=== PATIENT | male | born 1950 | race Caucasian/White ===

== ENCOUNTER 2025-05-26 06:59 | Day surgery (SDC) | payer OTHER, SELFPAY ==
[2025-05-22 13:08] VITALS: BMI 21.7
[2025-05-22 13:32] LABS: Hematocrit 41.3 % (39.0-52.0); Hemoglobin 13.7 g/dL (13.0-18.0); Mean Corp Hgb Conc. 33.2 g/dL (33.0-37.0); Mean Corpuscular Volume 92.8 fL (80.0-94.0); Nucleated Red Blood Cells % 0 % (-); Platelet Count 198 10^3/uL (130-400); Red Cell Dist. Width 13.2 % (11.5-14.5)
[2025-05-22 13:56] LABS: ALT (SGPT) 49 U/L (0-50); AST (SGOT) 39 U/L (17-59); Albumin 4.5 g/dl (3.5-5.0); Alkaline Phosphatase 80 U/L (38-126); Blood Urea Nitrogen 29 mg/dl (9-20); Calcium 9.5 mg/dl (8.4-10.2); Carbon Dioxide 29 mmol/L (22-30); Chloride 103 mmol/L (98-107); Estimated Creatinine Clearance 45 ml/min; Glucose 73 mg/dl (70-99); Potassium 4.2 mmol/L (3.5-5.1); Sodium 139 mmol/L (135-145); Total Protein 7.1 g/dl (6.3-8.2); eGFR 57.29
[2025-05-26] VITALS (10 sets, daily range): BP systolic 96–151; BP diastolic 64–93; BMI 22.2
[2025-05-26] MEDS: NSS 199 ML IV (08:18)
--- NOTE | 2025-05-26 10:17 | ITS.CL.CATH ---
Electronic Scale Tester - Catheterization
Cardiac Catheterization
Procedure Report:
CARDIAC CATHETERIZATION REPORT
Date of Procedure: 05/26/2025
Referring: Garcia Andersen D.O.
INDICATION: Chest pain, abnormal stress test.
PROCEDURE:
1. Left heart catheterization.
2. Coronary angiography.
A total of 37 minutes of procedural/moderate sedation was utilized. An independent medical assistant float was present to assist with and help manage the patient's level of consciousness and physiologic status.
ACCESS:
1. 6 [place] right radial artery using a modified Seldinger technique.
CATHETERS:
1. 5 [place] JR4.
2. 5 [place] JL 3.5.
HEMODYNAMIC DATA
Weight (kg): 66.2
AO (s/d/x, mmHg): 112/73/85
LV (s/x mmHg): 114/10
LEFT VENTRICULOGRAPHY: Not performed.
CORONARY ANGIOGRAPHY
Dominance: Right.
Left Main: Normal size, bifurcating vessel. There is no coronary artery disease.
LAD: Normal size vessel giving rise to 2 significant diagonals. There are minor luminal irregularities. The distal LAD is severely tortuous. There is delayed flow throughout the body of the vessel and spite of absence of epicardial stenosis.
Ramus: Congenitally absent.
Circumflex: Normal size, nondominant vessel giving rise to 2 obtuse marginals. The first obtuse marginal arises very high on the circumflex and supplies the majority of the inferolateral wall. OM1 is a medium size vessel supplying the basal
inferolateral wall. There is no coronary artery disease.
RCA: Large size, dominant vessel with a notable posterolateral arcade. 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
INTERVENTION(S)
None.
Closure Device: Vascular band.
Radiation (mGy): 369
DAP (cm2.Gy): 18.6
Fluoroscopy time (minutes): 2.1
CONCLUSIONS
1. Right dominant circulation with luminal regularities in the LAD and modest disease in the ostium of the RCA. Of note, there is delayed flow throughout the body of the LAD in the absence of epicardial stenosis.
2. Normal filling pressures (LVEDP = 10 mmHg at 66.2 kg).
RECOMMENDATIONS:
1. Expectant management after cardiac catheterization via right radial approach.
2. Limited weight bearing on the right wrist for one week.
3. Continue OMT/GDMT as hemodynamics will tolerate.
4. Consider up titration of statin given documentation of some atherosclerosis within the coronary vessels.
5. Given delayed flow in the LAD in the absence of epicardial disease, the patient may be suffering from endothelial dysfunction which may be managed medically with uptitration of amlodipine versus addition of long-acting nitrates and/or CHETNA
inhibitors.
6. Stable for outpatient follow-up.
Copy to: aGrcia Andersen D.O., Ivan Lundy D.O.
Nitesh Wilson DO, FACC, FACP
== END 2025-05-26 13:30 | disposition home or self-care (01) ==
LOC: CATH 06:59
PROVIDERS: ATTENDING PHYSICIAN Internal Medicine Cardiovascular Disease; FAMILY PHYSICIAN Family Medicine; OTHER PHYSICIAN Internal Medicine Cardiovascular Disease
DX: I25.10 Atherosclerotic heart disease of native coronary artery without angina pectoris (principal); I48.0 Paroxysmal atrial fibrillation; E78.5 Hyperlipidemia, unspecified; I10 Essential (primary) hypertension; Z85.51 Personal history of malignant neoplasm of bladder; C67.9 Malignant neoplasm of bladder, unspecified; C85.9A Non-Hodgkin lymphoma, unspecified, in remission; J44.9 Chronic obstructive pulmonary disease, unspecified; Z79.51 Long term (current) use of inhaled steroids; Z79.899 Other long term (current) drug therapy; Z90.79 Acquired absence of other genital organ(s); Z79.01 Long term (current) use of anticoagulants; Z87.891 Personal history of nicotine dependence
CPT/HCPCS: 99152; 99153; 36415; 80053; 85025; 93005; 93458; C1769; C1894; Q9967

== ENCOUNTER → 2025-09-01 12:28 | Outpatient (REF) | payer OTHER, SELFPAY | LOC: WOUND 12:28 | PROVIDERS: ATTENDING PHYSICIAN Surgery; FAMILY PHYSICIAN Family Medicine | DX: T81.31XA Disruption of external operation (surgical) wound, not elsewhere classified, initial encounter (principal); S31.109A Unspecified open wound of abdominal wall, unspecified quadrant without penetration into peritoneal cavity, initial encounter; C67.9 Malignant neoplasm of bladder, unspecified; N13.5 Crossing vessel and stricture of ureter without hydronephrosis; R59.1 Generalized enlarged lymph nodes; Y83.8 Other surgical procedures as the cause of abnormal reaction of the patient, or of later complication, without mention of misadventure at the time of the procedure; X58.XXXA Exposure to other specified factors, initial encounter | CPT/HCPCS: 99203 ==

== ENCOUNTER 2025-09-15 08:23 | Outpatient (REF) | payer OTHER, SELFPAY | END 2025-09-15 23:59 | disposition home or self-care (01) | LOC: WOUND 08:23 | PROVIDERS: ATTENDING PHYSICIAN Surgery; FAMILY PHYSICIAN Family Medicine | DX: T81.31XA Disruption of external operation (surgical) wound, not elsewhere classified, initial encounter (principal); S31.109A Unspecified open wound of abdominal wall, unspecified quadrant without penetration into peritoneal cavity, initial encounter; C67.9 Malignant neoplasm of bladder, unspecified; N13.5 Crossing vessel and stricture of ureter without hydronephrosis; R59.1 Generalized enlarged lymph nodes; Y83.8 Other surgical procedures as the cause of abnormal reaction of the patient, or of later complication, without mention of misadventure at the time of the procedure | CPT/HCPCS: 99213 ==

== ENCOUNTER 2025-09-30 09:51 | Outpatient (REF) | payer OTHER, SELFPAY | END 2025-09-30 23:59 | disposition home or self-care (01) | LOC: WOUND 09:51 | PROVIDERS: ATTENDING PHYSICIAN Registered Nurse; FAMILY PHYSICIAN Family Medicine | DX: T81.31XA Disruption of external operation (surgical) wound, not elsewhere classified, initial encounter (principal); S31.109A Unspecified open wound of abdominal wall, unspecified quadrant without penetration into peritoneal cavity, initial encounter; C67.9 Malignant neoplasm of bladder, unspecified; N13.5 Crossing vessel and stricture of ureter without hydronephrosis; R59.1 Generalized enlarged lymph nodes; Y83.8 Other surgical procedures as the cause of abnormal reaction of the patient, or of later complication, without mention of misadventure at the time of the procedure; X58.XXXA Exposure to other specified factors, initial encounter | CPT/HCPCS: 99213 ==